=== PATIENT | female | born 1935 | race Caucasian/White ===

== ENCOUNTER 2020-06-16 16:39 | Outpatient (REF) | payer MEDICARE, BC, SELFPAY ==
--- NOTE | ~2020-06-16 | XR_ITS ---
EXAMINATION: XR HIP, LEFT CLINICAL INFORMATION: Low back pain, fall COMPARISON: 03/19/2019 TECHNIQUE: Two views of the left hip. FINDINGS: Status post ORIF left hip. 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 Hardware appears intact. Healed right superior and inferior pubic rami fractures. No acute pelvic fracture seen. 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 XR/XR hip LT w [id number] IMPRESSION: Status post ORIF of the left hip. No acute fracture seen.
== END 2020-06-16 16:40 | disposition home or self-care (01) ==
LOC: HO.HMGCX 16:39
PROVIDERS: Visit Provider Hospitalist
DX: M54.5 Low back pain (principal)
CPT/HCPCS: 73502

== ENCOUNTER 2022-10-25 12:14 | Outpatient (REF) | payer MEDICARE, BC, SELFPAY ==
[2022-10-25 12:52] VITALS: BP 178/85; PULSE 98; RESP 16; O2SAT 100
[2022-10-25 12:53] VITALS: BMI 18.2
== END 2022-10-25 12:15 | disposition home or self-care (01) ==
LOC: HO.MS 12:14
PROVIDERS: PCP Internal Medicine; Visit Provider Ophthalmology
PROC: (CPT 66821; principal; 2022-10-25 14:00)
DX: H26.492 Other secondary cataract, left eye (principal)
CPT/HCPCS: 66821

== ENCOUNTER 2022-11-08 11:42 | Outpatient (REF) | payer MEDICARE, BC, SELFPAY ==
[2022-11-08 16:08] VITALS: BP 234/110; PULSE 75; RESP 18; TEMP 36.4; O2SAT 94
== END 2022-11-08 11:43 | disposition home or self-care (01) ==
LOC: HO.MS 11:42
PROVIDERS: PCP Internal Medicine; Visit Provider Ophthalmology
DX: H26.491 Other secondary cataract, right eye (principal); Z53.9 Procedure and treatment not carried out, unspecified reason

== ENCOUNTER 2023-08-08 12:07 | Outpatient (REF) | payer MEDICARE, BC, SELFPAY ==
[2023-08-08 13:56] VITALS: BMI 18.5
[2023-08-08 13:57] VITALS: BP 147/65; PULSE 80; RESP 17; TEMP 36.6; O2SAT 90
== END 2023-08-08 12:08 | disposition home or self-care (01) ==
LOC: HO.MS 12:07
PROVIDERS: Visit Provider Ophthalmology
PROC: (CPT 66821; principal; 2023-08-08 13:50)
DX: H26.491 Other secondary cataract, right eye (principal)
CPT/HCPCS: 66821